=== PATIENT | female | born 1995 | race Caucasian/White ===

== ENCOUNTER 2020-10-09 18:24 | Emergency (ER) | payer SELFPAY ==
[2020-10-09] MEDS ORDERED: Ondansetron ODT 4 MG TAB ONE (19:25)
[2020-10-09] MEDS ORDERED: Dicyclomine 20 MG TAB ONE (19:25)
[2020-10-09 19:29] LABS: #Basophils 0.1 thou/uL (0.0-0.2); #Eosinphils 0.1 thou/uL (0.0-0.7); #Lymphocytes 4.3 thou/uL (1.20-3.40); #Monocytes 0.9 thou/uL (0.11-0.59); #Neutrophils 8.5 thou/uL (1.40-6.50); %Basophils 0.6 % (0.0-1.0); %Eosinophils 0.6 % (0.0-10.0); %Lymphocytes 30.9 % (21.0-51.0); %Monocytes 6.1 % (0.0-10.0); %Neutrophils 61.8 % (42.0-75.0); Hemoglobin 13.2 g/dL (12.0-16.0); Mean Corpuscular HGB CONC 33.1 g/dL (32.0-36.0); Mean Corpuscular Hemoglobin 27.6 pg (27.0-31.0); Mean Corpuscular Volume 83.3 fL (78.0-98.0); Mean Platelet Volume 7.7 fL (7.4-10.4); Platelet Count 303 thou/uL (130-400); RBC Distribution Width 13.2 % (11.5-14.5); Red Blood Cell (RBC) Count 4.77 mill/uL (4.20-5.40); White Blood Cell (WBC) Count 13.8 thou/uL (4.8-10.8)
[2020-10-09 19:41] LABS: BHCG - Serum Negative (NEGATIVE); Pregs Control Background? CLEAR/WHITE (CLR/WHITE); Pregs Control Bar Appear? YES (CONTROL BAR)
[2020-10-09 19:53] LABS: Bacteria/HPF Rare-Few HPF (None Seen); Bilirubin Negative (Negative); Blood, Urine Negative (Negative); Clarity Turbid (Clear); Glucose, Urine (Dipstick) Normal (Negative); Ketone, Urine 20 mg/dL (Negative); Leukocyte 25 Leu/uL (Negative); Nitrite Negative (Negative); Protein, Urine (Dipstick) 30 mg/dL (Neg-Trace); RBC/HPF 0-3 HPF (0-3); Specific Gravity, Urine 1.032 (1.002-1.036); Squamous Epithelial 0-3 HPF (0-3); Urobilinogen Normal mg/dL (Less than 2); WBC/HPF 0-3 HPF (0-3)
[2020-10-09 19:53] LABS: ALT (SGPT) 27 U/L (8-55); AST (SGOT) 23 U/L (5-34); Albumin 4.2 g/dL (3.5-5.0); Alkaline Phosphatase 109 U/L (40-110); Anion Gap 17 mmol/L (10-20); BUN (Urea Nitrogen) 10 mg/dL (7.0-18.7); Bilirubin, Total 0.4 mg/dL (0.2-1.2); Calc. Creatinine Clearance 0 mL/min (70-130); Calcium 9.3 mg/dL (7.8-10.44); Carbon Dioxide 21 mmol/L (22-29); Chloride 105 mmol/L (98-107); Globulin 4.3 g/dL (2.4-3.5); Glucose 106 mg/dL (70-105); Lipase 12 U/L (8-78); Potassium 3.6 mmol/L (3.5-5.1); Protein, Total 8.5 g/dL (6.0-8.3); Sodium 139 mmol/L (136-145)
== END 2020-10-09 20:46 | disposition home or self-care (01) ==
LOC: ERS 18:24
DX: K29.70 Gastritis, unspecified, without bleeding (principal); R11.2 Nausea with vomiting, unspecified
CPT/HCPCS: 36415; 80053; 81003; 81015; 83690; 84703; 85025; 99284; Q0162

== ENCOUNTER 2021-06-21 00:59 | Emergency (ER) | payer SELFPAY ==
[2021-06-21] MEDS ORDERED: Lidocaine 1% (PF) 30 ML VIAL ONE (01:39)
[2021-06-21] MEDS ORDERED: Bacitracin 1 PK ONE (02:51)
== END 2021-06-21 03:00 | disposition home or self-care (01) ==
LOC: ERS 00:59
DX: L03.011 Cellulitis of right finger (principal); F17.210 Nicotine dependence, cigarettes, uncomplicated
CPT/HCPCS: 26011; J2001

== ENCOUNTER 2021-06-22 02:22 | Emergency (ER) | payer SELFPAY | END 2021-06-22 05:02 | disposition home or self-care (01) | LOC: ERS 02:22 | DX: J02.9 Acute pharyngitis, unspecified (principal); F17.210 Nicotine dependence, cigarettes, uncomplicated ==

== ENCOUNTER 2021-06-28 07:10 | Emergency (ER) | payer SELFPAY | END 2021-06-28 07:41 | disposition home or self-care (01) | LOC: ERS 07:10 | DX: J30.2 Other seasonal allergic rhinitis (principal); F17.210 Nicotine dependence, cigarettes, uncomplicated | CPT/HCPCS: 99283 ==

== ENCOUNTER 2022-03-29 01:18 | Emergency (ER) | payer SELFPAY ==
[2022-03-29 03:15] LABS: BHCG - Serum Negative (NEGATIVE); Pregs Control Background? CLEAR/WHITE (CLR/WHITE); Pregs Control Bar Appear? YES (CONTROL BAR)
[2022-03-29 04:10] LABS: ALT (SGPT) 13 U/L (8-55); AST (SGOT) 19 U/L (5-34); Albumin 4.3 g/dL (3.5-5.0); Alkaline Phosphatase 81 U/L (40-110); Anion Gap 17 mmol/L (10-20); BUN (Urea Nitrogen) 8 mg/dL (7.0-18.7); Bilirubin, Total 0.4 mg/dL (0.2-1.2); Calc. Creatinine Clearance 0 mL/min (70-130); Calcium 9.6 mg/dL (7.8-10.44); Carbon Dioxide 21 mmol/L (22-29); Chloride 103 mmol/L (98-107); Estimated GFR 88; Glucose 122 mg/dL (70-105); Potassium 3.3 mmol/L (3.5-5.1); Protein, Total 8.3 g/dL (6.0-8.3); Sodium 138 mmol/L (136-145)
[2022-03-29 04:28] LABS: #Basophils 0.1 thou/uL (0.0-0.2); #Eosinphils 0.1 thou/uL (0.0-0.7); #Lymphocytes 4.6 thou/uL (1.20-3.40); #Monocytes 0.9 thou/uL (0.11-0.59); #Neutrophils 6.4 thou/uL (1.40-6.50); %Basophils 0.5 % (0.0-1.0); %Eosinophils 0.8 % (0.0-10.0); %Monocytes 7.2 % (0.0-10.0); %Neutrophils 53.5 % (42.0-75.0); Hemoglobin 14.1 g/dL (12.0-16.0); Mean Corpuscular HGB CONC 34.1 g/dL (32.0-36.0); Mean Corpuscular Hemoglobin 30.3 pg (27.0-31.0); Mean Corpuscular Volume 89.1 fL (78.0-98.0); Mean Platelet Volume 7.4 fL (7.4-10.4); Platelet Count 278 thou/uL (130-400); Red Blood Cell (RBC) Count 4.66 mill/uL (4.20-5.40)
== END 2022-03-29 04:30 | disposition home or self-care (01) ==
LOC: ERS 01:18
DX: R00.2 Palpitations (principal); F17.210 Nicotine dependence, cigarettes, uncomplicated
CPT/HCPCS: 36415; 71045; 80053; 84443; 84484; 84703; 85025; 93005

== ENCOUNTER 2022-04-27 16:37 | Emergency (ER) | payer MEDICAID, SELFPAY ==
[2022-04-27] MEDS ORDERED: Acetaminophen 500 MG TAB ONE (18:03)
== END 2022-04-27 18:49 | disposition home or self-care (01) ==
LOC: ERS 16:37
DX: B34.9 Viral infection, unspecified (principal); Z87.891 Personal history of nicotine dependence
CPT/HCPCS: 87081; 87430; 99283

== ENCOUNTER 2022-04-30 23:21 | Emergency (ER) | payer SELFPAY | END 2022-05-01 00:13 | disposition left against medical advice (07) | LOC: ERS 23:21 | DX: Z53.21 Procedure and treatment not carried out due to patient leaving prior to being seen by health care provider (principal) ==

== ENCOUNTER 2023-06-28 10:10 | Emergency (ER) | payer SELFPAY ==
[2023-06-28] MEDS ORDERED: Ketorolac Tromethamine 30 MG/ML VIAL ONE (10:45)
== END 2023-06-28 11:09 | disposition home or self-care (01) ==
LOC: ERS 10:10
DX: K08.89 Other specified disorders of teeth and supporting structures (principal); K02.9 Dental caries, unspecified
CPT/HCPCS: 96372; 99283; J1885

== ENCOUNTER 2023-09-18 23:08 | Emergency (ER) | payer SELFPAY ==
[2023-09-18] MEDS ORDERED: Dexamethasone 10 MG/ML VIAL ONE (23:34)
== END 2023-09-18 23:38 | disposition home or self-care (01) ==
LOC: ERS 23:08
DX: J06.9 Acute upper respiratory infection, unspecified (principal); Z87.891 Personal history of nicotine dependence
CPT/HCPCS: 71045; J1100

== ENCOUNTER 2023-10-04 19:17 | Emergency (ER) | payer SELFPAY ==
[2023-10-04 20:13] LABS: SARS-CoV-2 NAA Rapid Test Not Detected (NotDetected)
[2023-10-04] MEDS ORDERED: Ibuprofen 200 MG TAB ONE (20:17)
[2023-10-04] MEDS ORDERED: Acetaminophen 325 MG TAB ONE (20:17)
[2023-10-04] MEDS ORDERED: Benzonatate 100 MG CAP ONE (20:18)
[2023-10-04] MEDS ORDERED: Ondansetron ODT 4 MG TAB ONE (20:18)
== END 2023-10-04 20:27 | disposition home or self-care (01) ==
LOC: ERS 19:17
DX: J10.1 Influenza due to other identified influenza virus with other respiratory manifestations (principal); Z87.891 Personal history of nicotine dependence
CPT/HCPCS: 99283; Q0162

== ENCOUNTER 2023-10-09 00:01 | Emergency (ER) | payer SELFPAY | END 2023-10-09 02:56 | disposition home or self-care (01) | LOC: ERS 00:01 | DX: R42 Dizziness and giddiness (principal); Z87.891 Personal history of nicotine dependence | CPT/HCPCS: 99283; J1100 ==

== ENCOUNTER 2023-10-17 10:59 | Emergency (ER) | payer SELFPAY ==
[2023-10-17 11:29] LABS: #Eosinphils 0.2 thou/uL (0.0-0.7); %Basophils 0.3 % (0.0-1.0); %Eosinophils 1.4 % (0.0-10.0); %Lymphocytes 46.7 % (21.0-51.0); %Monocytes 8.4 % (0.0-10.0); %Neutrophils 42.9 % (42.0-75.0); Hematocrit 39.9 % (36.0-47.0); Hemoglobin 13.2 g/dL (12.0-16.0); Mean Corpuscular HGB CONC 33.1 g/dL (32.0-36.0); Mean Corpuscular Hemoglobin 28.3 pg (27.0-31.0); Mean Corpuscular Volume 85.4 fl (78.0-98.0); Mean Platelet Volume 10.3 fL (7.4-10.4); Platelet Count 330 10x3/uL (130-400); RBC Distribution Width 12.2 % (11.5-14.5); Red Blood Cell (RBC) Count 4.67 mill/uL (4.20-5.40); White Blood Cell (WBC) Count 11.6 10x3/uL (4.8-10.8)
[2023-10-17 11:37] LABS: BHCG - Serum Negative (NEGATIVE); Pregs Control Background? CLEAR/WHITE (CLR/WHITE); Pregs Control Bar Appear? YES (CONTROL BAR)
[2023-10-17 11:46] LABS: ALT (SGPT) 21 U/L (8-55); AST (SGOT) 10 U/L (5-34); Alkaline Phosphatase 87 U/L (40-110); Anion Gap 14 mmol/L (10-20); BUN (Urea Nitrogen) 12 mg/dL (7.0-18.7); Bilirubin, Total 0.2 mg/dL (0.2-1.2); Calc. Creatinine Clearance 0 mL/min (70-130); Calcium 9.1 mg/dL (7.8-10.44); Carbon Dioxide 21 mmol/L (22-29); Chloride 105 mmol/L (98-107); Estimated GFR 62; Globulin 3.9 g/dL (2.4-3.5); Glucose 143 mg/dL (70-105); Lipase 45 U/L (8-78); Potassium 3.7 mmol/L (3.5-5.1); Protein, Total 7.9 g/dL (6.0-8.3); Sodium 136 mmol/L (136-145)
[2023-10-17] MEDS ORDERED: Ondansetron ODT 4 MG TAB ONE (12:39)
[2023-10-17 13:10] LABS: Bacteria/HPF None Seen HPF (None Seen); Bilirubin Negative (Negative); Blood, Urine Negative (Negative); CAUTI Indications for Culture Pelvic or flank pain; Clarity Clear (Clear); Glucose, Urine (Dipstick) Normal (Negative); Ketone, Urine Trace mg/dL (Negative); Leukocyte 25 Leu/uL (Negative); Nitrite Negative (Negative); Protein, Urine (Dipstick) 70 mg/dL (Neg-Trace); RBC/HPF 0-3 HPF (0-3); Specific Gravity, Urine 1.041 (1.002-1.036); pH, Urine 6.5 (5.0-9.0)
[2023-10-17 13:13] LABS: Urine Culture Reflex No No
== END 2023-10-17 13:49 | disposition home or self-care (01) ==
LOC: ERS 10:59
DX: R10.84 Generalized abdominal pain (principal); Z87.891 Personal history of nicotine dependence
CPT/HCPCS: 36415; 80053; 81001; 83690; 84703; 85025; 99284; Q0162

== ENCOUNTER 2023-11-03 00:19 | Emergency (ER) | payer SELFPAY ==
[2023-11-03] MEDS ORDERED: Ketorolac Tromethamine 30 MG (1 mL) VIAL ONE (00:36)
== END 2023-11-03 01:20 | disposition home or self-care (01) ==
LOC: ERS 00:19
DX: K08.89 Other specified disorders of teeth and supporting structures (principal); Z75.3 Unavailability and inaccessibility of health-care facilities; Z87.891 Personal history of nicotine dependence
CPT/HCPCS: 96372; 99282; J1885

== ENCOUNTER 2024-08-21 12:07 | Emergency (ER) | payer SELFPAY | END 2024-08-21 12:50 | disposition home or self-care (01) | LOC: ERS 12:07 | DX: L84 Corns and callosities (principal); L03.116 Cellulitis of left lower limb; L03.115 Cellulitis of right lower limb; F17.210 Nicotine dependence, cigarettes, uncomplicated | CPT/HCPCS: 99282 ==